=== PATIENT | female | born 1980 | race Caucasian/White ===

== ENCOUNTER → 2016-04-05 | Outpatient (CLI) | payer OTHER ==
[~2016-04-05] MED LIST: ACHYD1T PO; BIRTH CONTROL PO; DCS100C PO; IBUP200C92 PO; Ibuprofen PO; NAPR220C11 PO; OXYC-12 PO
--- OUTSIDE RECORDS SUMMARY | 2016-04-05 15:39 | XMS REPORT | Continuity of Care Document ---
Author Author [facility] Organization [facility] Address Unknown Phone Unavailable Support Name Relationship Address Phone MAGALI HAMILTON MD Caregiver #[address] [place] [address] CLEMENTINA STERLING Next Of Kin [address] [place] [id number] Insurance Providers Payer Name Policy Number Subscriber Name Relationship Benefit Management 15% [id number] Karrie Sterling 18 Self / Same As Patient Advance Directives Directive Response Recorded Date/Time Advance Directives No 02/23/14 8:18am Health Care Power of Mandarin Teacher No 02/23/14 8:18am Organ Donor No 02/23/14 8:18am Resuscitation Status Full Code 02/23/14 8:18am Problems No known problems or medical conditions. Medications Medication Dose Route Sig Days/Qty Instructions Order Date Discontinued Date Status [ Control] 1 Tab PO DAILY 08/08/13 02/24/14 Discontinued Naproxen Sodium 220 Mg PO NEEDED PRN PAIN 08/08/13 02/20/14 Discontinued Ibuprofen 200 Mg PO NEEDED PRN PAIN 08/08/13 Active Oxycodone Hcl/Acetaminophen 1-2 Each PO Q4-6H PRN PRN PAIN 35 Qty 08/1402/20/14 Discontinued Docusate Sodium 100 Mg PO TWICE A DAY 60 Qty 02/24/14 Active Acetaminophen/Hydrocodone Bitart 1-2 Ea PO EVERY 4HRS PRN PAIN 60 Qty 02/24/14 Active [Ibuprofen] 800 Mg PO GIVE EVERY 6 HR ON SCHEDULE 60 Qty 02/24/14 Active Social History Social History Problem Response Recorded Date/Time Recent Foreign Travel No 02/23/2014 8:18am Smoking Status Current Everyday Smoker 02/23/2014 8:18am Query Response Start Date Stop Date Smoking Status Current Everyday Smoker Hospital Discharge Instructions No hospital discharge instructions. Plan of Care No plan of care. Functional Status Query Response Date Recorded Patient Orientation Person Place Time Situation February 24, 2014 10:30am Allergies, Adverse Reactions, Alerts Allergen Type Severity Reaction Status Last Updated No Known Allergies Allergy Unknown Active 07/06/06 Immunizations Name Given Type Date of Influenza Vaccine 11/24/13 Historical Vital Signs Acute Vital Signs Vital Response Date/Time Temperature (Fahrenheit) 98.1 degrees F (97.6 - 99.5) Temperature (Calculated Celsius) 36.49552 degrees C (36.4 - 37.5) Temperature Source Temporal Pulse Rate (adult) 70 bpm (60 - 90) Respiratory Rate 18 bpm (12 - 24) O2 Sat by Pulse Oximetry 99 % (88 - 100) Blood Pressure 90/60 mm Hg Pain Pain Intensity 3 Height (Feet) 5 feet Height (Inches) 4.00 inches Height (Calculated Centimeters) 162.889063 cm Weight (Pounds) 132 pounds Weight (Calculated Grams) 12240.193 gm Weight (Calculated Kilograms) 59.540328 kilograms Height 5 ft 4 in Weight 132 lb Body Mass Index 22.7 kg/m^2 Results Laboratory Results Test Name Result Units Flags Reference Collection Date/Time Result Date/ Time Comments White Blood Count 10.4 10^3/uL 4.3-11.0 02/20/2014 10:45am 02/20/2014 11:08am Red Blood Count 4.21 10^6/uL L 4.35-5.85 02/20/2014 10:45am 02/20/2014 11 :08am Hemoglobin 12.1 G/DL 11.5-16.0 02/20/2014 10:45am 02/20/2014 11:08am Hematocrit 37 % 35-52 02/20/2014 10:45am 02/20/2014 11:08am Mean Corpuscular Volume 87 FL 80-99 02/20/2014 10:45am 02/20/2014 11: 08am Mean Corpuscular Hemoglobin 29 PG 25-34 02/20/2014 10:45am 02/20/2014 11:08am Mean Corpuscular Hemoglobin Concent 33 G/DL 32-36 02/20/2014 10:45am 11:08am Red Cell Distribution Width 13.3 % 10.0-14.5 02/20/2014 10:45am 2013 11:08am Platelet Count 374 10^3/uL 130-400 02/20/2014 10:45am 02/20/2014 11: 08am Mean Platelet Volume 10.0 FL 7.4-10.4 02/20/2014 10:45am 02/20/2014 11: 08am Neutrophils (%) (Auto) 71 % 42-75 02/20/2014 10:45am 02/20/2014 11: 08am Lymphocytes (%) (Auto) 21 % 12-44 02/20/2014 10:45am 02/20/2014 11: 08am Monocytes (%) (Auto) 6 % 0-12 02/20/2014 10:45am 02/20/2014 11:08am Eosinophils (%) (Auto) 2 % 0-10 02/20/2014 10:45am 02/20/2014 11:08am Basophils (%) (Auto) 1 % 0-10 02/20/2014 10:45am 02/20/2014 11:08am Neutrophils # (Auto) 7.4 X 10^3 1.8-7.8 02/20/2014 10:45am 02/20/2014 11:08am Lymphocytes # (Auto) 2.2 X 10^3 1.0-4.0 02/20/2014 10:45am 02/20/2014 11:08am Monocytes # (Auto) 0.6 X 10^3 0.0-1.0 02/20/2014 10:45am 02/20/2014 11: 08am Eosinophils # (Auto) 0.2 10^3/uL 0.0-0.3 02/20/2014 10:45am 02/20/2014 11:08am Basophils # (Auto) 0.1 10^3/uL 0.0-0.1 02/20/2014 10:45am 02/20/2014 11 :08am Procedures Procedure Status Date Provider(s) Robot-assisted laparoscopic hysterectomy completed 02/23/14 MAGALI HAMILTON MD Encounters Encounter Location Date/Time Registered [facility] 02/23/14 8:18am Registered Clinic [facility] 02/20/14 10:28am
--- NOTE | 2016-04-05 15:51 | Diagnostic Imaging Report ---
PROCEDURE: CT head without contrast. TECHNIQUE: Multiple contiguous axial images were obtained through the brain without the use of intravenous contrast. INDICATION: Headache and dizziness The ventricles are normal in size, shape and position. There are no masses or hemorrhages. There are no extra-axial fluid collections. Impression: Negative CT head Dictated by: Dictated on workstation # [id number]
--- NOTE | 2016-04-05 16:08 | Diagnostic Imaging Report ---
INDICATION: Low back pain. EXAMINATION: Lumbar spine. FINDINGS: AP and lateral views of the lumbar spine were obtained. FINDINGS: Normal vertebral body height and alignment. There is some spondylosis at L2-L3 with small osteophytes forming, anteriorly. Disc spaces are well maintained. IMPRESSION: Mild spondylosis at L2-L3. Schmorl's node in superior endplate of L1. No acute abnormality is seen. Dictated by: Dictated on workstation # [id number]
--- NOTE | 2016-04-05 16:09 | Diagnostic Imaging Report ---
INDICATION: Right hip pain. EXAMINATION: Two views of the right hip were obtained. FINDINGS: No fracture or dislocation. Joint spaces are well maintained. Articular surfaces are smooth. IMPRESSION: Negative right hip. Dictated by: Dictated on workstation # [id number]
== END ==
LOC: RAD 15:36
PROVIDERS: ATTEND Nurse Practitioner Family
DX: R51 Headache (principal); R42 Dizziness and giddiness; M54.5 Low back pain; M25.551 Pain in right hip; M51.46 Schmorl's nodes, lumbar region
CPT/HCPCS: 70450; 72100; 73502

== ENCOUNTER 2017-07-30 04:50 | Emergency (ER) | payer OTHER ==
[~2017-07-30] VITALS: Ht 162.6 cm; Wt 61.2 kg
[2017-07-30 05:23] LABS: BILIRUBIN,URINE NEGATIVE (NEGATIVE); CLARITY,URINE CLEAR; COLOR,URINE YELLOW; GLUCOSE, URINE (UA) NEGATIVE (NEGATIVE); KETONES,URINE NEGATIVE (NEGATIVE); LEUKOCYTE ESTERASE ,URINE 1+ (NEGATIVE); NITRITE,URINE NEGATIVE (NEGATIVE); PH,URINE 5 (5-9); PROTEIN,URINE NEGATIVE (NEGATIVE); UROBILINOGEN,URINE NORMAL (NORMAL)
[2017-07-30 05:33] LABS: BACTERIA,URINE TRACE /HPF; WBC,URINE 0-2 /HPF
--- NOTE | 2017-07-30 05:48 | ED Abdominal Pain ---
General Chief Complaint: -Female Stated Complaint: R SIDE/BACK PAIN Nursing Triage Note: PATIENT STATES THAT SHE WAS DIAGNOSED WITH A UTI LAST WEEK WITHOUT SEEING HER DOCTOR. MACROBID CALLED IN AND PATIENT HAS BEEN TAKING FOR SEVERAL DAYS. THIS MORNING SHE WOKE UP WITH SHARP PAIN IN HER RIGHT SIDE/BACK. SHE DID NOT GET PAIN RELIEF WITH TYLENOL. Sepsis Screen: No Definite Risk Source of Information: Patient (EMILY MILLAN DO) History of Present Illness Date Seen by Provider: July 30, 2017 Time Seen by Provider: 05:08 Initial Comments PT ARRIVES VIA POV FROM HOME PT STATES SHE WOKE UP AT 0300 THIS AM TO GO TO WORK AND BEGAN HAVING SEVERE SHARP PAIN IN RIGHT FLANK AND RUQ STATES PAIN WAS 10/10 AND IS NOW 7/10 TOOK TYLENOL AT 0315 WITHOUT RELIEF HAS HAD NAUSEA AND VOMITED X 1 FROM THE PAIN NO PROBLEMS URINATING--PT STATES A WEEK AGO, SHE WAS HAVING BURNING ON URINATION AND HAD A SMALL AMOUNT OF BLOOD IN URINE, AND RX FOR MACROBID WAS CALLED IN BY DR. HAMILTON'S OFFICE. WAS NOT SEEN IN OFFICE. PT STATES RX WAS CALLED IN LAST SUNDAY OR MONDAY 07/24 OR 07/25 THOSE SYMPTOMS ARE GONE NO FEVER NO PAIN OVER BLADDER HAS HAD SAME BEFORE BUT NEVER SOUGHT CARE. PT HAS HAS HYST/USO/APPY, BTL AND CHOLECYSTECTOMY PCP: DR. BARCENAS NETWORKING TECHNICIAN: DR. HAMILTON (EMILY MILLAN ) Allergies and Home Medications Allergies Coded Allergies: No Known Allergies (Verified Allergy, Unknown, 07/06/06) Home Medications Ciprofloxacin HCl 500 Mg Tablet, 500 MG PO BID Prescribed by: EMILY MILLAN on 07/30/17635 Metronidazole 500 Mg Tablet, 500 MG PO QID Prescribed by: EMILY MILLAN on 07/30/17635 Ondansetron 4 Mg Tab.rapdis, 4 MG PO Q4H Prescribed by: EMILY MILLAN on 07/30/17635 Tramadol HCl 50 Mg Tablet, 50 MG PO Q4H Prescribed by: EMILY MILLAN on 07/30/17635 Patient Home Medication List Home Medication List Reviewed: Yes (ANDI YU) Review of Systems Constitutional: no symptoms reported Respiratory: No Symptoms Reported Gastrointestinal: See HPI, Abdominal Pain; Denies Constipated, Denies Diarrhea ; Nausea, Vomiting Genitourinary: See HPI Musculoskeletal: see HPI, back pain Skin: no symptoms reported Psychiatric/Neurological: No Symptoms Reported Endocrine: No Symptoms Reported Hematologic/Lymphatic: No Symptoms Reported (YANA,EMILY Seble MONAE) Past Iptgelo-Frxjnz-Vtzzvu Hx Patient Social History Alcohol Use: Rarely Uses Recreational Drug Use: No Smoking Status: Never a Smoker 2nd Hand Smoke Exposure: No Recent Foreign Travel: No Contact w/Someone Who Travel: No Recent Infectious Disease Expo: No Physical Abuse: No Sexual Abuse: No (YANAEMILY Seble MONAE) Immunizations Up To Date Date of Influenza Vaccine: Nov 24, 2013 (YANAEMILYDillon Pruett DO) Seasonal Allergies Seasonal Allergies: No (EMILY MILLAN DO) Past Medical History Surgeries: Yes (HYST/LEFT S.O./APPY) Appendectomy, Gallbladder, Hysterectomy, Oophorectomy (LEFT), Tubal Ligation Respiratory: No Cardiac: No Neurological: No : No Female Reproductive Disorders: Menstrual 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 Genitourinary: Yes Bladder Infection Gastrointestinal: No Musculoskeletal: No Endocrine: No HEENT: No Cancer: No Psychosocial: No Nursing Suicide Risk Score: 0 Integumentary: No Blood Disorders: No (YANA,EMILY Seble MONAE) Physical Exam Vital Signs Vital Signs - First Documented 07/30/17 05:00 Temp 98.9 Pulse 88 Resp 18 B/P (MAP) 118/79 (92) Pulse Ox 100 (GIGI,ANDI J) Vital Signs Capillary Refill : Less Than 3 Seconds (YANAEMILY ) General Appearance: WD/WN, no apparent distress Respiratory: normal breath sounds, no respiratory distress Cardiovascular: regular rate, rhythm, no murmur Gastrointestinal: normal bowel sounds, soft, no organomegaly, no pulsatile mass , other (RIGHT MID AND UPPER ABDOMEN AND FLANK ARE NOT TENDER TO PALPATION, BUT ARE AREAS OF PAIN ) Extremities: normal inspection Neurologic/Psychiatric: technology officer II-XII nml as tested, no motor/sensory deficits, alert, normal mood/affect, oriented x 3 Skin: normal color, warm/dry; No rash (YANA,EMILY Seble MONAE) Progress/Results/Core Measures Results/Orders Lab Results Laboratory Tests Test 07/30/17 05:10 07/30/17 06:35 Range/Units Urine Color YELLOW Urine Clarity CLEAR Urine pH 5 5-9 Urine Specific Dixon 1.025 H 1.016-1.022 Urine Protein NEGATIVE NEGATIVE Urine Glucose (UA) NEGATIVE NEGATIVE Urine Ketones NEGATIVE NEGATIVE Urine Nitrite NEGATIVE NEGATIVE Urine Bilirubin NEGATIVE NEGATIVE Urine Urobilinogen NORMAL NORMAL MG/DL Urine Leukocyte Esterase 1+ H NEGATIVE Urine RBC (Auto) 2+ H NEGATIVE Urine RBC NONE /HPF Urine WBC 0-2 /HPF Urine Squamous Epithelial Cells 2-5 /HPF Urine Crystals NONE /LPF Urine Bacteria TRACE /HPF Urine Casts NONE /LPF Urine Mucus MODERATE H /LPF Urine Culture Indicated NO White Blood Count 12.1 H 4.3-11.0 10^3/uL Red Blood Count 3.88 L 4.35-5.85 10^6/uL Hemoglobin 12.0 11.5-16.0 G/DL Hematocrit 36 35-52 % Mean Corpuscular Volume 93 80-99 FL Mean Corpuscular Hemoglobin 31 25-34 PG Mean Corpuscular Hemoglobin Concent 33 32-36 G/DL Red Cell Distribution Width 13.6 10.0-14.5 % Platelet Count 319 130-400 10^3/uL Mean Platelet Volume 10.1 7.4-10.4 FL Neutrophils (%) (Auto) 82 H 42-75 % Lymphocytes (%) (Auto) 12 12-44 % Monocytes (%) (Auto) 5 0-12 % Eosinophils (%) (Auto) 1 0-10 % Basophils (%) (Auto) 0 0-10 % Neutrophils # (Auto) 10.0 H 1.8-7.8 X 10^3 Lymphocytes # (Auto) 1.4 1.0-4.0 X 10^3 Monocytes # (Auto) 0.6 0.0-1.0 X 10^3 Eosinophils # (Auto) 0.1 0.0-0.3 10^3/uL Basophils # (Auto) 0.0 0.0-0.1 10^3/uL Erythrocyte Sedimentation Rate 6 0-20 MM/HR Sodium Level 138 135-145 MMOL/L Potassium Level 3.9 3.6-5.0 MMOL/L Chloride Level 106 98-107 MMOL/L Carbon Dioxide Level 23 21-32 MMOL/L Anion Gap 9 5-14 MMOL/L Blood Urea Nitrogen 10 7-18 MG/DL Creatinine 0.67 0.60-1.30 MG/DL Estimat Glomerular Filtration Rate > 60 BUN/Creatinine Ratio 15 Glucose Level 99 70-105 MG/DL Calcium Level 8.8 8.5-10.1 MG/DL Total Bilirubin 0.3 0.1-1.0 MG/DL Aspartate Amino Transf (AST/SGOT) 18 5-34 U/L Alanine Aminotransferase (ALT/SGPT) 9 0-55 U/L Alkaline Phosphatase 57 40-136 U/L Total Protein 6.4 6.4-8.2 GM/DL Albumin 3.9 3.2-4.5 GM/DL Amylase Level 35 25-125 U/L Lipase 11 8-78 U/L (ANDI YU) Medications Given in ED Current Medications Medications Dose Ordered Sig/Lance Route Start Time Stop Time Status Last Admin Dose Admin Ondansetron HCl 4 mg ONCE ONCE IVP 07/30/17 06:45 07/30/17 06:46 DC 07/30/17 06:47 4 MG (ANDI YU) Vital Signs/I&O 07/30/17 05:00 Temp 98.9 Pulse 88 Resp 18 B/P (MAP) 118/79 (92) Pulse Ox 100 (ANDI YU) Blood Pressure Mean: 92 Urine -Bedside: Negative (EMILY MILLAN DO) Progress Progress Note : Progress Note 0640--CARE TURNED OVER TO DR. YU, LAB PENDING (EMILY MILLAN DO) Progress Note : Time: 07:20 Progress Note Met with the patient at 0635 discussed her history reexamined her and she is getting some pain medicine presently for her abdominal pain. On reexamination at 0 720 the patient says her pain is much better after the Toradol and her nausea is under control. We have examined her labs and she should be fine for outpatient trial of therapy. We will make sure she has antibiotics, nausea medicine and some Toradol for pain. (ANDI YU) Diagnostic Imaging Comments CT ABDOMEN/PELVIS--MILD WALL THICKENING OF TERMINAL ILEUM,CECUM AND ASCENDING COLON, NO URETERAL STONES AND NO OTHER ACUTE PROCESS--PER RADIOLOGIST REPORT @ 0688 Reviewed: Reviewed by Me (EMILY MILLAN DO) Diagonstic Imaging: CT Comments Mild circumferential wall thickening of the distal terminal ileum and right colon without significant associated pericolonic fat stranding suggesting nonspecific ileocolitis of uncertain chronicity. Minimal pelvic ascites. Mildly enlarged right ovary containing multiple probably small cysts and follicles. Possible mild circumferential wall thickening a mildly distended urinary bladder without significant pericystic fat stranding. Reviewed: [facility] (ANDI YU) Departure Impression Primary Impression: Acute colitis Additional Impression: UTI (urinary tract infection) Qualified Codes: N30.00 - Acute cystitis without hematuria Disposition: HOME, SELF-CARE Condition: Stable Departure-Patient Inst. Decision time for Depature: 08:01 (ANDI YU) Referrals: NAZARIO BARCENAS MD (PCP/Family) Primary Care Physician Patient Instructions: Microscopic Colitis, Urinary Tract Infection, Adult (DC) Add. Discharge Instructions: CLEAR LIQUIDS--WATER, BROTH, JELLO, GATORADE BRATS DIET--BANANAS, RICE, APPLESAUCE, TOAST, SALTINES FOLLOW UP WITH DR. BARCENAS IN 2-3 DAYS FOR FURTHER CARE RETURN TO ER IF WORSE All discharge instructions reviewed with patient and/or family. Voiced understanding. Scripts Ondansetron (Zofran Odt) 4 Mg Tab.rapdis 4 MG PO Q4H for Nausea/Vomiting, #10 TAB Prov: YANALAZAROA K DO 07/30/17 Tramadol HCl (Ultram) 50 Mg Tablet 50 MG PO Q4H, #20 TAB Prov: YANAEMILY K DO 07/30/17 Metronidazole (Flagyl) 500 Mg Tablet 500 MG PO QID for FOR INFECTION, #40 TAB Prov: YANA,EMILY K DO 07/30/17 Ciprofloxacin HCl (Cipro) 500 Mg Tablet 500 MG PO BID, #20 TAB Prov: YANALAZAROA K DO 07/30/17 Work/School Note: Work Release Form Date Seen in the Emergency Department: July 30, 2017 Return to Work: August 02, 2017 Restrictions: No Restrictions Copy Copies To 1: NAZARIO BARCENAS MD, LISA K DO July 30, 2017 05:48 ANDI YU July 30, 2017 07:24
--- NOTE | 2017-07-30 06:20 | Diagnostic Imaging Report ---
PROCEDURE: CT urinary tract, rule out kidney stone. TECHNIQUE: Multiple contiguous axial images were obtained through the abdomen and pelvis without the use of intravenous contrast. INDICATION: Right flank and abdominal pain. COMPARISON: None. FINDINGS: The lung bases are clear. Cholecystectomy. Appendectomy. There is mild bowel wall edema and mucosal hyperenhancement involving the terminal ileum, cecum and ascending colon. No evidence of bowel obstruction. No acute osseous findings. Duodenal diverticulum. The liver, pancreas, spleen, adrenals, kidneys, collecting systems are negative on this noncontrast exam. Urinary bladder wall thickening versus underdistention. No free intraperitoneal air or fluid. No lymphadenopathy. IMPRESSION: 1. Mild bowel wall thickening and mucosal hyperenhancement involving the terminal ileum, cecum and proximal ascending colon. Findings are nonspecific but can be seen in inflammatory bowel disorders. No evidence of bowel obstruction. No free intraperitoneal air or fluid. 2. Urinary bladder wall thickening versus underdistention. Dictated by: Dictated on workstation # [id number]
[2017-07-30] MEDS ORDERED: LEVOFLOXACIN 750 MG/150 ML IV 150 ML IV STA (06:32)
[2017-07-30] MEDS ORDERED: KETOROLAC 30 MG/ML VIAL IVP STA (06:32)
[2017-07-30] MEDS ORDERED: TRAM-42 PO (06:36)
[2017-07-30] MEDS ORDERED: METR500T PO (06:36)
[2017-07-30] MEDS ORDERED: ONDA4TAB8 PO (06:36)
[2017-07-30] MEDS ORDERED: CIPR-225 PO (06:36)
--- NOTE | 2017-07-30 06:38 | Diagnostic Imaging Report ---
INDICATION: Urinary tract infection. COMPARISON: 06/29/2014 FINDINGS: Supine frontal views of the abdomen are obtained. There is a large amount of stool in the colon. The bowel gas pattern is otherwise unremarkable. No urinary tract calcifications are suspected, however, evaluation of the kidneys and urinary tracts is somewhat limited by overlying bowel gas and stool. There is some mild sclerosis of the sacroiliac joints bilaterally. Osseous structures otherwise unremarkable. IMPRESSION: 1. No evidence of urinary tract calcifications although somewhat limited exam 2. Large amount of stool throughout the colon. 3. Bilateral sacroiliac sclerosis may be related to sacroiliitis. Correlate clinically. Dictated by: Dictated on workstation # [id number]
[2017-07-30 06:44] LABS: BASOPHILS % (AUTO) 0 % (0-10); EOSINOPHILS # (AUTO) 0.1 10^3/uL (0.0-0.3); EOSINOPHILS % (AUTO) 1 % (0-10); HEMATOCRIT 36 % (35-52); LYMPHOCYTES # (AUTO) 1.4 X 10^3 (1.0-4.0); LYMPHOCYTES % (AUTO) 12 % (12-44); MEAN CORPUSCULAR HEMOGLOBIN 31 PG (25-34); MEAN CORPUSCULAR HGB CONC 33 G/DL (32-36); MEAN CORPUSCULAR VOLUME 93 FL (80-99); MEAN PLATELET VOLUME 10.1 FL (7.4-10.4); MONOCYTES # (AUTO) 0.6 X 10^3 (0.0-1.0); MONOCYTES % (AUTO) 5 % (0-12); NEUTROPHILS % (AUTO) 82 % (42-75); PLATELET COUNT 319 10^3/uL (130-400); RED BLOOD COUNT 3.88 10^6/uL (4.35-5.85); RED CELL DISTRIBUTION WIDTH 13.6 % (10.0-14.5); WHITE BLOOD COUNT 12.1 10^3/uL (4.3-11.0)
[2017-07-30] MEDS ORDERED: ONDANSETRON 4 MG/2 ML (SDV) Z0FRAN IVP ONE (06:45)
[2017-07-30 07:05] LABS: ALANINE AMINOTRANSFERASE 9 U/L (0-55); ALBUMIN 3.9 GM/DL (3.2-4.5); ALKALINE PHOSPHATASE 57 U/L (40-136); AMYLASE 35 U/L (25-125); BILIRUBIN,TOTAL 0.3 MG/DL (0.1-1.0); BUN/CREATININE RATIO 15; CALCIUM 8.8 MG/DL (8.5-10.1); CARBON DIOXIDE 23 MMOL/L (21-32); CHLORIDE 106 MMOL/L (98-107); CREATININE SERUM 0.67 MG/DL (0.60-1.30); GFR ESTIMATED > 60; GLUCOSE 99 MG/DL (70-105); LIPASE 11 U/L (8-78); POTASSIUM 3.9 MMOL/L (3.6-5.0); SODIUM 138 MMOL/L (135-145); TOTAL PROTEIN 6.4 GM/DL (6.4-8.2)
[2017-07-30 07:11] LABS: ERYTHROCYTE SEDIMENTATION RATE 6 MM/HR (0-20)
[2017-07-30 08:38] VITALS: BP 118/82
--- OUTSIDE RECORDS SUMMARY | 2017-07-30 17:24 | XMS REPORT | Continuity of Care Document ---
Author Author [facility] Address Unknown Phone Unavailable Allergies Active Description Code Type Severity Reaction Onset Reported/Identified Relationship to Patient Clinical Status Yes NKANo Known Allergies NKA Miscellaneous Allergy Unknown N/A 07/06/2006 Medications There is no data. Problems Date Dx Coded Attending Type Code Diagnosis Diagnosed By 06/07/2012 DMITRY PICHARDO APRN 305.1 TOBACCO ABUSE 06/07/2012 DMITRY PICHARDO APRN V76.2 CERVICAL CANCER SCREENING (PAP SMEAR) 06/07/2012 305.1 TOBACCO ABUSE 06/07/2012 V76.2 CERVICAL CANCER SCREENING (PAP SMEAR) 07/30/2012 724.2 lower back pain 07/30/2012 789.07 diffuse abdominal pain 08/14/2013 KADY PADILLA MD Ot 575.11 CHRONIC CHOLECYSTITIS 02/17/2014 KADY PADILLA MD Ot 575.8 02/17/2014 KADY PADILLA MD Ot V72.63 02/17/2014 KADY PADILLA MD Ot V74.8 02/24/2014 MAGALI HAMILTON MD Ot 543.9 DISEASES OF APPENDIX NEC 02/24/2014 MAGALI HAMILTON MD Ot 616.0 CERVICITIS 02/24/2014 MAGALI HAMILTON MD Ot 617.0 UTERINE ENDOMETRIOSIS 02/24/2014 MAGALI HAMILTON MD Ot 620.2 OVARIAN CYST NEC/NOS 03/15/2014 ZACKERY EDWARDS APRN Ot 959.01 HEAD INJURY, NOS 03/15/2014 ZACKERY EDWARDS APRN Ot E000.8 OTHER EXTERNAL CAUSE STATUS 03/15/2014 ZACKERY EDWARDS APRN Ot E888.1 FALL STRIKING OBJECT NEC 06/29/2014 KADY PADILLA MD Ot 575.8 06/29/2014 KADY PADILLA MD Ot V72.63 06/29/2014 VALERIE BERNABE, KADY Ot V74.8 06/29/2014 JOY BERNABE, MAGALI Sylvester Ot 285.9 06/29/2014 JOY BERNABE, MAGALI Sylvester Ot 625.9 06/29/2014 JOY BERNABE, MAGALI Sylvester Ot 626.8 06/29/2014 JOY BERNABE, MAGALI Sylvester Ot V72.63 06/29/2014 JOY BENRABE, MAGALI Sylvester Ot V74.8 07/30/2014 JANET CHAU [place]ACHUTE CUSHION INSTALLER Ot 724.2 04/04/2016 VALERIE BERNABE, KADY Ot 575.8 DIS OF GALLBLADDER NEC 04/04/2016 VALERIE BERNABE, KADY Ot V72.63 PRE-PROCEDURAL LABORATORY EXAMINATION 04/04/2016 VALERIE BERNABE, KADY Ot V74.8 SCREEN-BACTERIAL DIS NEC 04/04/2016 JOY BERNABE, MAGALI Sylvester Ot 285.9 ANEMIA NOS 04/04/2016 JOY BERNABE, MAGALI Sylvester Ot 625.9 FEM GENITAL SYMPTOMS NOS 04/04/2016 JOY BERNABE, MAGALI Sylvester Ot 626.8 MENSTRUAL DISORDER NEC 04/04/2016 JOY BERNABE, MAGALI Sylvester Ot V72.63 PRE-PROCEDURAL LABORATORY EXAMINATION 04/04/2016 JOY BERNABE, MAGALI Sylvester Ot V74.8 SCREEN-BACTERIAL DIS NEC 04/04/2016 JANET CHAU [place]ACHUTE CUSHION INSTALLER Ot 724.2 LUMBAGO 04/06/2016 JANET CHAU PARACHUTE CUSHION INSTALLER Ot M25.551 PAIN IN RIGHT HIP 04/06/2016 JANET CHAU PARACHUTE CUSHION INSTALLER Ot M51.46 SCHMORL'S NODES, LUMBAR REGION 04/06/2016 JANET CHAU PARACHUTE CUSHION INSTALLER Ot M54.5 LOW BACK PAIN 04/06/2016 JANET CHAU PARACHUTE CUSHION INSTALLER Ot R42 DIZZINESS AND GIDDINESS 04/06/2016 JANET CHAU [employer]ACHUTE CUSHION INSTALLER Ot R51 HEADACHE 04/07/2016 JANET CHAU PARACHUTE CUSHION INSTALLER Ot M25.551 PAIN IN RIGHT HIP 04/07/2016 JANET CHAU PARACHUTE CUSHION INSTALLER Ot M51.46 SCHMORL'S NODES, LUMBAR REGION 04/07/2016 JANET CHAU M PARACHUTE CUSHION INSTALLER Ot M54.5 LOW BACK PAIN 04/07/2016 JANET CHAU PARACHUTE CUSHION INSTALLER Ot R42 DIZZINESS AND GIDDINESS 04/07/2016 JANET CHAU [place]ACHUTE CUSHION INSTALLER Ot R51 HEADACHE 04/13/2016 ISACSARAHEVANGELINA Yanez PARACHUTE CUSHION INSTALLER Ot M25.551 PAIN IN RIGHT HIP 04/13/2016 ISAC JANET M [place]ACHUTE CUSHION INSTALLER Ot M51.46 SCHMORL'S NODES, LUMBAR REGION 04/13/2016 JANET CHAU PARACHUTE CUSHION INSTALLER Ot M54.5 LOW BACK PAIN 04/13/2016 ARCHANA CHAUHANEVANGELINA GIBBSP Ot R42 DIZZINESS AND GIDDINESS 04/13/2016 JANET CHAUP Ot R51 HEADACHE 04/13/2016 VALERIE BERNABE, KADY Ot 575.8 DIS OF GALLBLADDER NEC 04/13/2016 KADY PADILLA MD Ot V72.63 PRE-PROCEDURAL LABORATORY EXAMINATION 04/13/2016 KADY PADILLA MD Ot V74.8 SCREEN-BACTERIAL DIS NEC 04/13/2016 MAGALI HAMILTON MD Ot 285.9 ANEMIA NOS 04/13/2016 MAGALI HAMILTON MD Ot 625.9 FEM GENITAL SYMPTOMS NOS 04/13/2016 MAGALI HAMILTON MD Ot 626.8 MENSTRUAL DISORDER NEC 04/13/2016 MAGALI HAMILTON MD Ot V72.63 PRE-PROCEDURAL LABORATORY EXAMINATION 04/13/2016 MAGALI HAMILTON MD, Ot V74.8 SCREEN-BACTERIAL DIS NEC 04/13/2016 JANET CHAU Ot 724.2 LUMBAGO 04/13/2016 JANET CHAU Ot M25.551 PAIN IN RIGHT HIP 04/13/2016 JANET CHAUP Ot M51.46 SCHMORL'S NODES, LUMBAR REGION 04/13/2016 JANET CHAUP Ot M54.5 LOW BACK PAIN 04/13/2016 JANET CHAUP Ot R42 DIZZINESS AND GIDDINESS 04/13/2016 JANET CHAU PARACHUTE CUSHION INSTALLER Ot R51 HEADACHE 06/01/2016 JANET CHAU PARACHUTE CUSHION INSTALLER Ot M25.551 PAIN IN RIGHT HIP 06/01/2016 JANET CHAU PARACHUTE CUSHION INSTALLER Ot M51.46 SCHMORL'S NODES, LUMBAR REGION 06/01/2016 JANET CHAU PARACHUTE CUSHION INSTALLER Ot M54.5 LOW BACK PAIN 06/01/2016 JANET CHAU PARACHUTE CUSHION INSTALLER Ot R42 DIZZINESS AND GIDDINESS 06/01/2016 JANET CHAU [place]ACHUTE CUSHION INSTALLER Ot R51 HEADACHE Procedures Code [place] [address] PAP SMEAR 06/10/2012 Q0091 PAP SMEAR OBTAIN SMEAR 06/10/2012 53007 UA LONG DIP 07/30/2012 Results There is no data. Encounters ACCT No. Visit Date/Time Discharge Status Pt. Type Provider Facility Loc./Unit Complaint [id number] 06/07/2012 14:38:00 06/07/2012 23:59:59 CLS Outpatient KYLEE AIDENDMITRY Dillon [id number] 07/30/2012 12:39:00 Document Registration [id number] 04/05/2016 15:36:00 04/05/2016 23:59:59 CLS Outpatient JANET CHAU [facility] RAD HEADACHES [id number] 06/29/2014 16:32:00 06/29/2014 23:59:59 CLS Outpatient JANET CHAU [facility] RAD LBP [id number] 03/15/2014 12:22:00 03/15/2014 13:56:00 DIS Emergency ZACKERY EDWARDS APRN [facility] ER HEAD PAIN [id number] 02/23/2014 08:18:00 02/24/2014 10:15:00 DIS Outpatient MAGALI HAMILTON MD [facility] DYSFUNTIONAL UTERINE BLEEDING CHRONIC PELVIC JARRET [id number] 02/20/2014 10:28:00 02/20/2014 23:59:59 CLS Outpatient MAGALI HAMILTON MD [facility] PREOP DYSFUNTIONAL UTERINE BLEEDING/CHRONIC PELVIC PAIN [id number] 08/14/2013 07:32:00 08/14/2013 15:15:00 DIS Outpatient KADY PADILLA MD [facility] BILIARY DYSKENISA [id number] 08/08/2013 07:54:00 08/08/2013 23:59:59 CLS Outpatient KADY PADILLA MD [facility] PREOP BILIARY DYSKENISA [id number] 07/03/2013 07:38:00 07/03/2013 23:59:59 CLS Outpatient
== END 2017-07-30 08:38 | disposition home or self-care (01) ==
LOC: EDUNIT# 04:50 → ER 04:52
DX: K52.9 Noninfective gastroenteritis and colitis, unspecified (principal); N39.0 Urinary tract infection, site not specified; Z90.710 Acquired absence of both cervix and uterus; Z98.51 Tubal ligation status; Z90.49 Acquired absence of other specified parts of digestive tract; Z32.02 Encounter for pregnancy test, result negative
CPT/HCPCS: 36415; 74018; 74176; 80053; 81000; 82150; 83690; 84703; 85025; 85652; 96365; 96375